=== PATIENT | female | born 1950 | race Caucasian/White ===

== ENCOUNTER 2023-09-25 15:03 | Outpatient (AMB) | payer MEDICARE, SELFPAY ==
--- NOTE | 2023-09-25 15:07 | MHC.OFFVIS ---
Vital Signs 09/25/23 15:31 Height 5 ft Weight 116 lb 6 oz BMI 22.7 BP 120/60 Blood Pressure Location Lt brachial Position Sitting Respiration 16 Pulse 60 Pulse Source Pulse Oximeter Pulse Oximetry (%) 96 Oxygen Delivery Method Room Air Intake Visit Reasons: Bilat knee pain Intake Note: Patient comes in for initial visit was referred by primary care doctor. She was accompanied by?her grandson Greg. They reports her pain today is 02/11. Allergies amoxicillin Allergy (Verified 09/25/23 15:34) Unknown bee Allergy (Uncoded 09/25/23 15:34) Unknown HPI Comments Details: Rita is very pleasant 73 years old female who presents in my office with complains on pain in bilateral knees. She reports that her pain started 15 years ago due to rupture of left meniscus. She received surgeries on the left knee meniscectomy and she also received multiple injections in bilateral knees mostly on the left side. She reported pain relief from unknown preparation of hyaluronic acid for 1 year and a half. She is able to sleep normally but she can not do activities of daily living she takes care of herself but she can not function normally. She is retired individual. Weather changes in movements aggravate her pain. In terms of tissue damage her pain is described as pulsing, pounding, stabbing, lancinating, sharp, cutting, lacerating, tugging, pulling, wrenching, hot burning, searing, aching, heavy, sickening, suffocating, spreading, radiating, piercing. She takes Tylenol and Advil to help her pain. She denies opioids. She had x-rays of bilateral knees long time ago. She experienced physical therapy after surgery however she denied any help from physical therapy. She reported injections in the knee as above. Past medical history significant for history of 2 heart attacks, history of angina, she is history of 4 stents in the heart no history of CHF she denies blood thinners. Her surgical history is described as above as partial meniscectomy. Social history she is retired individual she stopped smoking cigarettes 16 years ago she does not drink alcohol she is does not drink coffee or caffeinated beverages and she denies recreational drugs. Review of Systems Const Denies chills, Reports excessive sweating, Denies fatigue, Denies fever(s) and Reports weight gain Eyes Denies blurry vision, Denies exophthalmos and Denies diplopia ENT Reports Normal hearing present, Denies vertigo and Denies dizziness Card Denies chest pain, Denies chest pain at rest, Denies chest pain with activity, Denies syncope, Denies rapid heart rate, Denies pedal edema and Denies edema Resp Denies chest congestion, Denies cough, Denies hemoptysis, Denies excessive phlegm production, Denies pain on inspiration and Denies pain with cough GI Denies abdominal pain, Denies belching, Denies melena and Denies bloating Denies urinary incontinence Musc Denies as per HPI, Denies back pain and Denies tingling Neuro Reports Normal hearing present, Denies Abnormal speech present, Denies confusion, Denies vertigo, Denies dizziness, Denies syncope, Denies lack of coordination, Denies Sensory deficit (Neuro) and Denies tingling Psych Denies no additional complaints, Denies confusion and Denies depression Endo Denies deepening of the voice, Reports excessive sweating, Denies fatigue and Denies polyuria Physical Exam Vital Signs: Last Vital Signs Pulse 60 09/25/23 15:31 Resp 16 09/25/23 15:31 BP 120/60 09/25/23 15:31 Pulse Ox 96 09/25/23 15:31 Oxygen Delivery Method Room Air 09/25/23 15:31 BMI result Body Mass Index 22.7 Const General: No confusion Orientation/consciousness: No confusion Eyes General: appearance normal, both eyes and all related structures Pupils: Equal, round and reactive pupils present EOM: EOMs intact bilaterally Neck Neck: Yes full ROM Chest Chest palpation & inspection: normal inspection of the chest Resp Effort & Inspection: normal respiratory effort, able to speak in complete sentences, normal respiratory pattern, no audible wheezes and no cough Cardio Jugular venous distension: no JVD GI Inspection: Yes normal to inspection Neuro General: No confusion Cranial nerves: Yes CN's II-XII intact bilaterally, Yes Equal, round and reactive pupils present, Yes Normal hearing present and Yes Ability to bilaterally elevate shoulders present Speech: No Abnormal speech present Gait exam (Neuro): Normal gait present Motor exam (neuro): 5/5 motor strength present throughout Sensory Exam: No Sensory deficit (Neuro) Extrem Other: Deformities of bilateral knees more on the left than rest and right are noted. The range of motion is limited. There is tenderness on palpation. With range of motion there is sensation of crepitus in bilateral knees. General: No pedal edema Psych Speech and movement: Normal speech and movement present Affect: normal affect Attitude: cooperative Thought process: Normal thought process present Thought content: Normal thought content present Insight: Good insight present (Psych) Judgement: Good judgement present (Psych) Assessment & Plan Assessment & Plan (1) Osteoarthritis of knees, bilateral: Code(s): M17.0 - Bilateral primary osteoarthritis of knee Category: Medical (2) Knee pain, bilateral: Code(s): M25.561 - Pain in right knee; M25.562 - Pain in left knee Category: Medical (3) Chronic pain syndrome: Code(s): G89.4 - Chronic pain syndrome Category: Medical Plan This patient had very good results from hyaluronic acid preparations knee injection. It is unknown preparation was used for her. I will schedule her for Synvisc intra-articular bilateral knee injections. Coding Level of Care Code New Pt Level 3 (05277) Diagnoses Osteoarthritis of knees, bilateral M17.0 Knee pain, bilateral M25.561; M25.562 Chronic pain syndrome G89.4
[2023-09-25 15:31] VITALS: BP 120/60; PULSE 60; RESP 16; O2SAT 96; BMI 22.7
== END 2023-09-25 15:34 | disposition home or self-care (01) ==
PROVIDERS: PCP Physician Assistant Medical; Visit Provider Anesthesiology
DX: M17.0 Bilateral primary osteoarthritis of knee (principal); M25.561 Pain in right knee; M25.562 Pain in left knee; G89.4 Chronic pain syndrome
CPT/HCPCS: 99203

== ENCOUNTER → 2023-09-25 15:03 | Outpatient (BNVA) | payer MEDICARE, SELFPAY | PROVIDERS: PCP Physician Assistant Medical; Visit Provider Anesthesiology | DX: M17.0 Bilateral primary osteoarthritis of knee (principal); M25.562 Pain in left knee; M25.561 Pain in right knee; G89.4 Chronic pain syndrome | CPT/HCPCS: 99202 ==

== ENCOUNTER 2023-10-08 09:22 | Outpatient (AMB) | payer MEDICARE, SELFPAY ==
--- NOTE | 2023-10-08 09:28 | MHC.OFFVIS ---
Vital Signs 10/08/23 10:02 Height 5 ft Weight 116 lb BMI 22.7 BP 104/67 Blood Pressure Location Lt brachial Position Sitting Respiration 16 Pulse 54 Pulse Source Pulse Oximeter Pulse Oximetry (%) 97 Oxygen Delivery Method Room Air Intake Visit Reasons: synvise bilateral (knees) Intake Note: Patient comes in for bilateral synvisc one knee injection. Reports pain 5/10. Allergies amoxicillin Allergy (Verified 10/08/23 10:05) Unknown bee Allergy (Uncoded 09/25/23 15:34) Unknown HPI Comments Details: Rita is here to receive intra-articular hyaluronic acid Synvisc injection bilaterally. She tolerated procedure well. Description of the procedure see as below. The patient previously received this kind of injection with very good pain relief. The possibility of further treatment with continuous Synvisc injection is discussed. The patient will be seen in 45 days after today's injection. All questions were answered risks and benefits of the continuous in this injections were explained to the patient. Prior: very pleasant 73 years old female who presents in my office with complains on pain in bilateral knees. She reports that her pain started 15 years ago due to rupture of left meniscus. She received surgeries on the left knee meniscectomy and she also received multiple injections in bilateral knees mostly on the left side. She reported pain relief from unknown preparation of hyaluronic acid for 1 year and a half. She is able to sleep normally but she can not do activities of daily living she takes care of herself but she can not function normally. She is retired individual. Weather changes in movements aggravate her pain. In terms of tissue damage her pain is described as pulsing, pounding, stabbing, lancinating, sharp, cutting, lacerating, tugging, pulling, wrenching, hot burning, searing, aching, heavy, sickening, suffocating, spreading, radiating, piercing. She takes Tylenol and Advil to help her pain. She denies opioids. She had x-rays of bilateral knees long time ago. She experienced physical therapy after surgery however she denied any help from physical therapy. She reported injections in the knee as above. Past medical history significant for history of 2 heart attacks, history of angina, she is history of 4 stents in the heart no history of CHF she denies blood thinners. Her surgical history is described as above as partial meniscectomy. Social history she is retired individual she stopped smoking cigarettes 16 years ago she does not drink alcohol she is does not drink coffee or caffeinated beverages and she denies recreational drugs. Review of Systems Const All systems reviewed & are unremarkable except as noted in HPI and below ENT Reports Normal hearing present Neuro Reports Normal hearing present, Denies Abnormal speech present, Denies confusion and Denies Sensory deficit (Neuro) Psych Denies confusion Physical Exam Vital Signs: Last Vital Signs Pulse 54 10/08/23 10:02 Resp 16 10/08/23 10:02 BP 104/67 10/08/23 10:02 Pulse Ox 97 10/08/23 10:02 Oxygen Delivery Method Room Air 10/08/23 10:02 BMI result Body Mass Index 22.7 Const General: No confusion Orientation/consciousness: No confusion Eyes General: appearance normal, both eyes and all related structures Pupils: Equal, round and reactive pupils present EOM: EOMs intact bilaterally Neck Neck: Yes full ROM Chest Chest palpation & inspection: normal inspection of the chest Resp Effort & Inspection: normal respiratory effort, able to speak in complete sentences, normal respiratory pattern, no audible wheezes and no cough Cardio Jugular venous distension: no JVD GI Inspection: Yes normal to inspection Neuro General: No confusion Cranial nerves: Yes CN's II-XII intact bilaterally, Yes Equal, round and reactive pupils present, Yes Normal hearing present and Yes Ability to bilaterally elevate shoulders present Speech: No Abnormal speech present Gait exam (Neuro): Normal gait present Motor exam (neuro): 5/5 motor strength present throughout Sensory Exam: No Sensory deficit (Neuro) Extrem Other: Deformities of bilateral knees more on the left than rest and right are noted. The range of motion is limited. There is tenderness on palpation. With range of motion there is sensation of crepitus in bilateral knees. General: No pedal edema Psych Speech and movement: Normal speech and movement present Affect: normal affect Attitude: cooperative Thought process: Normal thought process present Thought content: Normal thought content present Insight: Good insight present (Psych) Judgement: Good judgement present (Psych) Office Procedures Joint Injection/Drain Joint Injection/Drain Primary Site: right knee Secondary Site: left knee Prep: site was prepped using aseptic technique and injection warnings given Procedure: The patient tolerated the procedure well Coding 74139 - Large joint Procedure code (CPT) selection complete Joint Injection/Drain Coding Procedure code (CPT) selection complete Office Meds Synvisc-One 48 mg/6 mL intra-articular syringe Performing Provider: David Mcarthur MD Performing Location: [facility] Administered by: David Mcarthur MD on 10/08/23 09:43 Dose Route Admin Location Dispensed Lot Number Expiration Date NDC [employer] 48 mg intra-articular Left knee 6 mL ersl [id number] [employer] - 48 mg intra-articular Right knee 6 mL drsl [id number] [employer] - Comments: The patient positioned sitting with bilateral knees exposed. The knees were prepped with ChloraPrep and draped sterile utility towels anterior lateral approach was chosen for the injection. The retropatellar space was chosen as the target of the injection. The procedure was performed non image guided. The patient tolerated the procedure well. Synvisc-One 48 mg/6 mL intra-articular syringe Performing Provider: David Mcarthur MD Performing Location: [facility] Documented (not given) by: David Mcarthur MD on 10/08/23 09:43 Reason Not Given: No Longer Necessary Assessment & Plan Assessment & Plan (1) Osteoarthritis of knees, bilateral: Code(s): M17.0 - Bilateral primary osteoarthritis of knee Category: Medical (2) Knee pain, bilateral: Code(s): M25.561 - Pain in right knee; M25.562 - Pain in left knee Category: Medical (3) Chronic pain syndrome: Code(s): G89.4 - Chronic pain syndrome Category: Medical Plan I will see this patient in 45 days. She instructed to give me a call if her pain will come back earlier. Orders: Orders AMB Joint Injection/Aspiration Today M17.0 - Bilateral primary osteoarthritis of knee, M25.561 - Pain in right knee, M25.562 - Pain in left knee AMB Joint Injection/Aspiration Today G89.4 - Chronic pain syndrome, M17.0 - Bilateral primary osteoarthritis of knee, M25.561 - Pain in right knee, M25.562 - Pain in left knee AMB Joint Injection/Aspiration Today G89.4 - Chronic pain syndrome, M17.0 - Bilateral primary osteoarthritis of knee, M25.561 - Pain in right knee, M25.562 - Pain in left knee Medications: New Synvisc-One (hylan g-f 20) 48 mg (6 mL) intra-articular ONCE 6 mL 0RF NS M17.0 - Bilateral primary osteoarthritis of knee, M25.561 - Pain in right knee, M25.562 - Pain in left knee Coding Level of Care Code Est Pt Level 3 (43423) Procedure Only Diagnoses Osteoarthritis of knees, bilateral M17.0 Knee pain, bilateral M25.561; M25.562 Chronic pain syndrome G89.4 CPT Codes Coding - 17970 Large joint: 63032 - Large joint ([id number])
[2023-10-08 10:02] VITALS: BP 104/67; PULSE 54; RESP 16; O2SAT 97; BMI 22.7
== END 2023-10-08 10:11 | disposition home or self-care (01) ==
PROVIDERS: PCP Physician Assistant Medical; Visit Provider Anesthesiology
DX: M17.0 Bilateral primary osteoarthritis of knee (principal); M25.561 Pain in right knee; M25.562 Pain in left knee; G89.4 Chronic pain syndrome
CPT/HCPCS: 20610

== ENCOUNTER → 2023-10-08 09:22 | Outpatient (BNVA) | payer MEDICARE, SELFPAY | PROVIDERS: PCP Physician Assistant Medical; Visit Provider Anesthesiology | DX: M17.0 Bilateral primary osteoarthritis of knee (principal); G89.4 Chronic pain syndrome | CPT/HCPCS: 20610; J7325 ==